=== PATIENT | female | born 1985 | race Caucasian/White ===

== ENCOUNTER 2019-10-27 17:01 | Emergency (ER) | payer BC, OTHER ==
[~2019-10-27] VITALS: Ht 165.1 cm; Wt 104.3 kg
[2019-10-27 17:05] VITALS: BP 131/75
--- NOTE | 2019-10-27 17:15 | NUR ---
34/F BIB SELF C/O R EYE REDNESS, SINCE THIS AM. REPORTS BLURRY VISION. HX . PATIENT STATES PAIN OF 10/10 AT THIS TIME. PATIENT POSITIONED FOR COMFORT; HOB ELEVATED; BEDRAILS UP X1; BED DOWN. ER MD MADE AWARE OF PT STATUS.
--- NOTE | 2019-10-27 17:16 | NUR ---
RIGHT EYE 20/20, LEFT EYE 20/13, BOTH EYES 20/13
[2019-10-27] MEDS ORDERED: TETRACAINE HCL/PF 0.5% OPTH 4 ML BTL OP ONE (17:30)
[2019-10-27] MEDS ORDERED: FLUORESCEIN OPTH STRIP 1 MG OP ONE (17:30)
[2019-10-27 18:33] VITALS: BP 140/86
--- NOTE | 2019-10-27 18:33 | NUR ---
Patient discharged with v/s stable. Written and verbal after care instructions given and explained. Patient alert, oriented and verbalized understanding of instructions. Ambulatory with steady gait. All questions addressed prior to discharge. ID band removed. Patient advised to follow up with PMD. Rx of IBUPROFEN, GENTAMICIN OPTH SOLUTION given. Patient educated on indication of medication including possible reaction and side effects. Opportunity to ask questions provided and answered.
== END 2019-10-27 18:33 | disposition home or self-care (01) ==
LOC: MED 17:01
DX: H10.9 Unspecified conjunctivitis (principal); Z88.1 Allergy status to other antibiotic agents
CPT/HCPCS: 99283